=== PATIENT | male | born 2000 | race American Indian/Alaskan Native ===

== ENCOUNTER 2020-10-07 21:11 | Emergency (ER) | payer SELFPAY | END 2020-10-08 00:55 | LOC: ED 21:11 | DX: Z00.8 Encounter for other general examination (principal); Z53.21 Procedure and treatment not carried out due to patient leaving prior to being seen by health care provider ==

== ENCOUNTER 2020-10-11 12:50 | Emergency (ER) | payer SELFPAY ==
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
[2020-10-11 17:07] VITALS: BP 141/68
== END 2020-10-11 17:07 | disposition home or self-care (01) ==
LOC: ED 12:50
DX: M25.572 Pain in left ankle and joints of left foot (principal)
CPT/HCPCS: 99283